=== PATIENT | female | born 1950 | race Caucasian/White ===

== ENCOUNTER 2017-08-23 11:15 | Outpatient (RCR) | payer MEDICARE, OTHER ==
[~2017-08-23 11:15] MED LIST: ASPIRIN 81M81 MG/TA2 PO; ASPIRIN E.C. 8181 MG PO; BACTRIM DS 8001 TAB PO; CELEBREX 200MG200 MG PO; CELEXA; CELEXA40 MG PO; CEPHALEXIN500 M1 PO; CORDARONE200 MG/TAB PO; DILANTIN 100MG100 MG PO; EFFEXOR 3737.5 MG/TA PO; EFFEXOR-XR150 MG PO; FLEXERIL 1010 MG/TAB; IBU400 MG PO; INDERAL; INDERAL 20MG20 MG PO; INDERAL80 MG PO; LEXAPRO20 MG PO; LIPITOR20 MG PO; LOPRESSOR 225 MG/TAB PO; LOPRESSOR 550 MG/TAB PO; LORTAB 5/500 501 TAB PO; MULTIVITAMIN1 CTB PO; NEXIUM PO; NEXIUM24HROTC PO; NORCO 325 MG-51 TAB PO; OMNICEF 300MG300 MG PO; REQUIP 1MG T1 MG/TAB PO; TOPROL XL100 MG PO; ULTRAM 50MG TAB50 MG PO; ZESTRIL 5MG5 MG PO; ZOFRAN4 M1 PO; [UNRECOGNIZED DRUG - CODE] SC
== END 2017-11-11 | disposition home or self-care (01) ==
LOC: MKS.ESL.PT
DX: M25.512 Pain in left shoulder (principal)
CPT/HCPCS: G8978-GP; G8979-GP

== ENCOUNTER 2018-01-29 19:28 | Emergency (ER) | payer MEDICARE, OTHER ==
[2008-10-06 23:05] VITALS: BP 139/77
[~2018-01-29] VITALS: Ht 165.1 cm; Wt 116.4 kg
[2018-01-29 19:29] VITALS: TEMP 97.4
[2018-01-29 20:00] LABS: BASO % 0.3 % (0.0-2.0); EOS # 0.1 (0.0-0.7); EOS % 1.3 % (0-4.0); GRAN % 84.2 % (42.2-75.2); HEMATOCRIT 42.8 % (37.0-47.0); HEMOGLOBIN 13.9 g/dl (12.5-16.0); LYMPH % 9.2 % (20.0-51.0); MEAN CELL VOLUME 91 fl (80.0-100.0); MEAN CORPUSCULAR HEMOGLOBIN 30 pg (27.0-31.0); MEAN CORPUSCULAR HGB CONC 33 g/dl (33.0-37.0); MEAN PLATELET VOLUME 9.2 fl (7.4-10.4); MONO # 0.5 (0.1-0.6); MONO % 4.4 % (1.7-9.3); PLATELET COUNT 234 K/mm3 (130-400); REDCELL DISTRIBUTION WIDTH-CV 13.8 % (11.5-14.5)
[2018-01-29 20:09] LABS: ALANINE AMINOTRANSFERASE 35 U/L (9-52); ALBUMIN 3.8 gm/dL (3.5-5.0); ALKALINE PHOSPHATASE 119 U/L (50-136); ANION GAP 11 mmol/L (7-16); AST,SGOT 24 U/L (15-37); BILIRUBIN,TOTAL 0.8 mg/dL (0.0-1.0); BLOOD UREA NITROGEN 27 mg/dL (7-17); CALCIUM 11.1 mg/dL (8.4-10.2); CARBON DIOXIDE 24 mmol/L (22-30); CHLORIDE 108 mmol/L (98-107); GLUCOSE 101 mg/dL (74-106); POTASSIUM 4.7 mmol/L (3.4-5.0); SODIUM 143 mmol/L (137-145); TOTAL PROTEIN 7.4 gm/dL (6.4-8.2)
[2018-01-29 20:19] LABS: INR 0.9 (0.8-3.0); PROTHROMBIN TIME 10.1 SECONDS (9.7-12.8)
[2018-01-29 20:24] LABS: TROPONIN-I < 0.012 ng/mL (0.000-0.034)
[2018-01-29 20:57] LABS: COLLECTION METHOD CLEAN CATCH
[2018-01-29 21:05] LABS: MUCOUS Present /lpf; PH 5 (5-8); SQUAMOUS EPITHELIAL 0-2 /hpf; URINE APPEARANCE Hazy; URINE BACTERIA Many /hpf; URINE BILIRUBIN Negative (NEGATIVE); URINE BLOOD Negative (NEGATIVE); URINE COLOR Yellow; URINE GLUCOSE Negative (NEGATIVE); URINE KETONE Negative (NEGATIVE); URINE LEUKOCYTE ESTERASE 2+ (NEGATIVE); URINE NITRATE Negative (NEGATIVE); URINE PROTEIN(semi-quant) Negative (NEGATIVE); URINE UROBILINOGEN Negative (NEGATIVE)
[2018-01-29 22:20] VITALS: BP 119/85; PULSE 86
[2018-01-30] MEDS ORDERED: CEFTIN500 MG PO (17:54)
== END 2018-01-29 22:20 | disposition home or self-care (01) ==
LOC: COL.ER 19:28
PROVIDERS: Emergency Medicine
DX: N39.0 Urinary tract infection, site not specified (principal); E86.0 Dehydration; R53.83 Other fatigue; I48.91 Unspecified atrial fibrillation; I10 Essential (primary) hypertension; K21.9 Gastro-esophageal reflux disease without esophagitis; E78.5 Hyperlipidemia, unspecified; Z90.49 Acquired absence of other specified parts of digestive tract; Z90.89 Acquired absence of other organs
CPT/HCPCS: J0696; J2765; J7030; Q9967

== ENCOUNTER 2018-02-02 10:10 | Emergency (ER) | payer MEDICARE, OTHER ==
[2008-10-06 23:05] VITALS: BP 139/77
[~2018-02-02] VITALS: Ht 165.1 cm; Wt 115.5 kg
[~2018-02-02 10:10] MED LIST changes: +CEFTIN500 MG PO
[2018-02-02 10:12] VITALS: TEMP 98.1
[2018-02-02 10:50] LABS: BASO % 0.4 % (0.0-2.0); EOS # 0.1 (0.0-0.7); EOS % 2.4 % (0-4.0); GRAN % 56.5 % (42.2-75.2); HEMATOCRIT 42.9 % (37.0-47.0); HEMOGLOBIN 14.3 g/dl (12.5-16.0); LYMPH # 1.6 (1.2-3.4); LYMPH % 29.7 % (20.0-51.0); MEAN CELL VOLUME 89 fl (80.0-100.0); MEAN CORPUSCULAR HEMOGLOBIN 30 pg (27.0-31.0); MEAN CORPUSCULAR HGB CONC 33 g/dl (33.0-37.0); MEAN PLATELET VOLUME 9.3 fl (7.4-10.4); MONO # 0.6 (0.1-0.6); MONO % 10.3 % (1.7-9.3); PLATELET COUNT 262 K/mm3 (130-400); RED BLOOD COUNT 4.83 M/mm3 (4.10-5.30); REDCELL DISTRIBUTION WIDTH-CV 13.7 % (11.5-14.5)
[2018-02-02 10:58] LABS: ALANINE AMINOTRANSFERASE 49 U/L (9-52); ALBUMIN 3.7 gm/dL (3.5-5.0); ALKALINE PHOSPHATASE 107 U/L (50-136); ANION GAP 14 mmol/L (7-16); AST,SGOT 29 U/L (15-37); BILIRUBIN,TOTAL 0.6 mg/dL (0.0-1.0); BLOOD UREA NITROGEN 24 mg/dL (7-17); CALCIUM 10.6 mg/dL (8.4-10.2); CARBON DIOXIDE 23 mmol/L (22-30); CHLORIDE 103 mmol/L (98-107); CREATININE, serum 0.94 mg/dL (0.52-1.25); GLUCOSE 107 mg/dL (74-106); LIPASE 18 U/L (23-300); MAGNESIUM 1.8 mg/dL (1.6-2.3); POTASSIUM 3.6 mmol/L (3.4-5.0); SODIUM 140 mmol/L (137-145); TOTAL PROTEIN 7.3 gm/dL (6.4-8.2)
[2018-02-02 11:06] LABS: COLLECTION METHOD CLEAN CATCH
[2018-02-02 11:09] LABS: TROPONIN-I < 0.012 ng/mL (0.000-0.034)
[2018-02-02 11:13] LABS: MUCOUS Present /lpf; PH 5 (5-8); SQUAMOUS EPITHELIAL 0-2 /hpf; URINE APPEARANCE Hazy; URINE BACTERIA None Seen /hpf; URINE BILIRUBIN Negative (NEGATIVE); URINE BLOOD Negative (NEGATIVE); URINE COLOR Yellow; URINE GLUCOSE Negative (NEGATIVE); URINE KETONE Negative (NEGATIVE); URINE LEUKOCYTE ESTERASE 2+ (NEGATIVE); URINE NITRATE Negative (NEGATIVE); URINE PROTEIN(semi-quant) 1+ (NEGATIVE); URINE UROBILINOGEN Negative (NEGATIVE)
[2018-02-02] MEDS ORDERED: CEFTIN500 MG PO (12:30)
[2018-02-02 13:53] VITALS: BP 129/74; PULSE 72
[2018-02-04] MEDS ORDERED: LEVAQUIN 5500 MG/TA1 PO (12:11)
== END 2018-02-02 13:54 | disposition home or self-care (01) ==
LOC: COL.ER 10:10
PROVIDERS: Emergency Medicine
DX: N39.0 Urinary tract infection, site not specified (principal); Z79.82 Long term (current) use of aspirin
CPT/HCPCS: J0696; J7040

== ENCOUNTER 2018-03-16 08:28 | Day surgery (SDC) | payer MEDICARE, OTHER ==
[2008-10-06 23:05] VITALS: BP 139/77
[~2018-03-16] VITALS: Ht 165.1 cm; Wt 117.7 kg
[~2018-03-16 08:28] MED LIST changes: +LEVAQUIN 5500 MG/TA1 PO
[2018-03-16 09:20] VITALS: BP 138/77; PULSE 62; TEMP 98.4
[2018-03-16] MEDS ORDERED: ACIPHEX20 MG PO (09:32)
[2018-03-16] MEDS ORDERED: TOPROL XL 50MG50 MG PO (09:34)
[2018-03-16] MEDS ORDERED: VIIBRYD40 MG PO (09:35)
[2018-03-16] MEDS ORDERED: ADVIL200 MG PO (09:37)
[2018-03-16] MEDS ORDERED: NORVASC 5MG5 MG/TAB PO (09:38)
[2018-03-16] MEDS ORDERED: AMOXICILLIN 8751 TAB PO (09:39)
[2018-03-16 11:50] VITALS: BP 138/74; PULSE 66; TEMP 98.2
[2018-03-16 12:05] VITALS: BP 138/54; PULSE 65
[2018-03-16] MEDS ORDERED: SENOKOT8.6 MG PO (12:16)
[2018-03-16] MEDS ORDERED: AZO URINARY PAI95 MG PO (12:17)
[2018-03-16 12:20] VITALS: BP 138/73; PULSE 60
== END 2018-03-16 13:32 | disposition home or self-care (01) ==
LOC: SDCO 08:28
DX: N20.1 Calculus of ureter (principal); R31.29 Other microscopic hematuria; Z87.440 Personal history of urinary (tract) infections; Z79.82 Long term (current) use of aspirin; Z79.899 Other long term (current) drug therapy; E78.00 Pure hypercholesterolemia, unspecified; E83.52 Hypercalcemia; M79.7 Fibromyalgia
CPT/HCPCS: C1769; C2617; J0690; J1100; J2405; J2704; J2765; J3010; J7120

== ENCOUNTER → 2018-06-09 | Outpatient (CLI) | payer MEDICARE, OTHER ==
[~2018-06-09] MED LIST changes: +ACIPHEX20 MG PO; +ADVIL200 MG PO; +AMOXICILLIN 8751 TAB PO; +AZO URINARY PAI95 MG PO; +NORVASC 5MG5 MG/TAB PO; +SENOKOT8.6 MG PO; +TOPROL XL 50MG50 MG PO; +VIIBRYD40 MG PO
== END ==
LOC: COL.RAD 13:09
DX: N32.89 Other specified disorders of bladder (principal); Z87.442 Personal history of urinary calculi

== ENCOUNTER 2018-10-20 11:30 | Emergency (ER) | payer MEDICARE, OTHER ==
[2008-10-06 23:05] VITALS: BP 139/77
[~2018-10-20] VITALS: Ht 165.1 cm; Wt 118.2 kg
[2018-10-20 11:34] VITALS: TEMP 98.1
[2018-10-20 11:57] LABS: BASO # 0.1 (0.0-0.2); BASO % 0.9 % (0.0-2.0); EOS # 0.1 (0.0-0.7); EOS % 1.9 % (0-4.0); GRAN # 3.5 (1.4-6.5); GRAN % 65.4 % (42.2-75.2); HEMOGLOBIN 13.4 g/dl (12.5-16.0); LYMPH # 1.2 (1.2-3.4); LYMPH % 22.6 % (20.0-51.0); MEAN CELL VOLUME 90 fl (80.0-100.0); MEAN CORPUSCULAR HEMOGLOBIN 29 pg (27.0-31.0); MEAN CORPUSCULAR HGB CONC 32 g/dl (33.0-37.0); MEAN PLATELET VOLUME 9.2 fl (7.4-10.4); MONO # 0.5 (0.1-0.6); MONO % 8.6 % (1.7-9.3); PLATELET COUNT 215 K/mm3 (130-400); RED BLOOD COUNT 4.69 M/mm3 (4.10-5.30); REDCELL DISTRIBUTION WIDTH-CV 13.4 % (11.5-14.5)
[2018-10-20 12:03] LABS: INR 0.9 (0.8-3.0); PROTHROMBIN TIME 10.3 SECONDS (9.7-12.8)
[2018-10-20 12:05] LABS: PARTIAL THROMBOPLASTIN TIME 27.5 SECONDS (26.0-37.0)
[2018-10-20] MEDS ORDERED: PRILOSEC 20MG20 MG PO (12:06)
[2018-10-20] MEDS ORDERED: AMBIEN 5MG TABLE5 MG PO (12:08)
[2018-10-20] MEDS ORDERED: MYRBETR50MG PO (12:08)
[2018-10-20 12:22] LABS: ALANINE AMINOTRANSFERASE 29 U/L (9-52); ALBUMIN 3.9 gm/dL (3.5-5.0); ALKALINE PHOSPHATASE 113 U/L (50-136); ANION GAP 8 mmol/L (7-16); AST,SGOT 33 U/L (15-37); BILIRUBIN,TOTAL 0.8 mg/dL (0.0-1.0); BLOOD UREA NITROGEN 12 mg/dL (7-17); CALCIUM 10.1 mg/dL (8.4-10.2); CARBON DIOXIDE 25 mmol/L (22-30); CHLORIDE 107 mmol/L (98-107); CREATININE, serum 0.61 mg/dL (0.52-1.25); GLUCOSE 110 mg/dL (74-106); LIPASE 19 U/L (23-300); POTASSIUM 3.4 mmol/L (3.4-5.0); SODIUM 140 mmol/L (137-145)
[2018-10-20 12:37] LABS: TROPONIN-I < 0.012 ng/mL (0.000-0.035)
[2018-10-20 16:19] VITALS: BP 115/81; PULSE 74
== END 2018-10-20 16:20 | disposition home or self-care (01) ==
LOC: COL.ER 11:30
PROVIDERS: Emergency Medicine
DX: R00.2 Palpitations (principal); R06.02 Shortness of breath; I10 Essential (primary) hypertension; K21.9 Gastro-esophageal reflux disease without esophagitis
CPT/HCPCS: Q9967

== ENCOUNTER → 2019-01-12 | Outpatient (CLI) | payer MEDICARE, OTHER ==
[~2019-01-12] MED LIST changes: +AMBIEN 5MG TABLE5 MG PO; +MAGNESIUM200 MG PO; +MYRBETR50MG PO; +PRILOSEC 20MG20 MG PO
[2019-01-12 16:38] LABS: HEMATOCRIT 41.2 % (37.0-47.0); MEAN CELL VOLUME 90 fl (80.0-100.0); MEAN CORPUSCULAR HEMOGLOBIN 28 pg (27.0-31.0); MEAN CORPUSCULAR HGB CONC 32 g/dl (33.0-37.0); MEAN PLATELET VOLUME 9.4 fl (7.4-10.4); PLATELET COUNT 237 K/mm3 (130-400); RED BLOOD COUNT 4.57 M/mm3 (4.10-5.30); REDCELL DISTRIBUTION WIDTH-CV 13.8 % (11.5-14.5)
[2019-01-12 16:47] LABS: ANION GAP 7 mmol/L (7-16); BLOOD UREA NITROGEN 18 mg/dL (7-17); CALCIUM 10.3 mg/dL (8.4-10.2); CARBON DIOXIDE 28 mmol/L (22-30); CHLORIDE 106 mmol/L (98-107); CREATININE, serum 0.73 (0.52-1.25); GLUCOSE 97 mg/dL (74-106); POTASSIUM 3.9 mmol/L (3.4-5.0); SODIUM 141 mmol/L (137-145)
[2019-01-12 17:00] LABS: TROPONIN-I < 0.012 ng/mL (0.000-0.035)
== END ==
LOC: COL.LAB 16:13
PROVIDERS: Internal Medicine Interventional Cardiology
DX: I47.2 Ventricular tachycardia (principal)

== ENCOUNTER 2019-01-14 14:51 | Inpatient (IN) | payer MEDICARE, OTHER ==
[~2019-01-14] VITALS: Ht 167.6 cm; Wt 117.3 kg
[~2019-01-14 14:51] MED LIST changes: -MAGNESIUM200 MG PO
[2019-01-14 15:08] VITALS: BP 141/78; PULSE 72; TEMP 98.6
[2019-01-14 15:54] LABS: BASO # 0.1 (0.0-0.2); BASO % 0.8 % (0.0-2.0); EOS # 0.1 (0.0-0.7); EOS % 1.2 % (0-4.0); GRAN # 4.2 (1.4-6.5); GRAN % 65.3 % (42.2-75.2); HEMATOCRIT 41.3 % (37.0-47.0); HEMOGLOBIN 13.1 g/dl (12.5-16.0); LYMPH # 1.5 (1.2-3.4); LYMPH % 23.7 % (20.0-51.0); MEAN CELL VOLUME 91 fl (80.0-100.0); MEAN CORPUSCULAR HEMOGLOBIN 29 pg (27.0-31.0); MEAN CORPUSCULAR HGB CONC 32 g/dl (33.0-37.0); MEAN PLATELET VOLUME 9.5 fl (7.4-10.4); MONO # 0.5 (0.1-0.6); MONO % 8.4 % (1.7-9.3); PLATELET COUNT 245 K/mm3 (130-400); RED BLOOD COUNT 4.56 M/mm3 (4.10-5.30); REDCELL DISTRIBUTION WIDTH-CV 13.9 % (11.5-14.5)
[2019-01-14 15:56] LABS: ALANINE AMINOTRANSFERASE 17 U/L (9-52); ALBUMIN 3.8 gm/dL (3.5-5.0); ALKALINE PHOSPHATASE 131 U/L (50-136); ANION GAP 7 mmol/L (7-16); AST,SGOT 24 U/L (15-37); BILIRUBIN,TOTAL 0.3 mg/dL (0.0-1.0); BLOOD UREA NITROGEN 17 mg/dL (7-17); CALCIUM 10.2 mg/dL (8.4-10.2); CARBON DIOXIDE 28 mmol/L (22-30); CHLORIDE 105 mmol/L (98-107); CREATININE, serum 0.64 (0.52-1.25); GLUCOSE 115 mg/dL (74-106); MAGNESIUM 1.9 mg/dL (1.6-2.3); PHOSPHOROUS 3.1 mg/dL (2.5-4.5); POTASSIUM 3.7 mmol/L (3.4-5.0); SODIUM 140 mmol/L (137-145); TOTAL PROTEIN 6.9 gm/dL (6.4-8.2)
[2019-01-14 16:10] LABS: TROPONIN-I < 0.012 ng/mL (0.000-0.035)
[2019-01-14] MEDS ORDERED: MAGNESIUM200 MG PO (16:20)
[2019-01-14 19:24] VITALS: BP 132/75; PULSE 69; TEMP 98.3
[2019-01-14 22:54] VITALS: BP 115/65; PULSE 89; TEMP 98.6
[2019-01-14 23:58] VITALS: BP 137/63; PULSE 64; TEMP 97.8
[2019-01-15 04:05] VITALS: BP 118/67; PULSE 62; TEMP 98.1
[2019-01-15 06:59] VITALS: BP 117/44; PULSE 66; TEMP 97.9
[2019-01-15 10:42] VITALS: BP 132/81; PULSE 64; TEMP 98.1
[2019-01-15 15:20] VITALS: BP 134/72; PULSE 63; TEMP 98.5
[2019-01-15 21:21] VITALS: BP 147/71; PULSE 65; TEMP 98.4
[2019-01-15 23:35] VITALS: BP 128/67; PULSE 62; TEMP 97.9
[2019-01-16] VITALS (14 sets, daily range): BP systolic 119–158; BP diastolic 65–91; PULSE 62–78; TEMP 98–98.8
== END 2019-01-16 18:04 | disposition home or self-care (01) | DRG 287 ==
LOC: MEDICAL 14:51
PROVIDERS: ADMIT Internal Medicine Interventional Cardiology
PROC: B2111ZZ Fluoroscopy of Multiple Coronary Arteries using Low Osmolar Contrast (ICD-10-PCS; principal; 2019-01-16)
PROC: B2161ZZ Fluoroscopy of Right and Left Heart using Low Osmolar Contrast (ICD-10-PCS; principal; 2019-01-16)
PROC: 4A023N7 Measurement of Cardiac Sampling and Pressure, Left Heart, Percutaneous Approach (ICD-10-PCS; principal; 2019-01-16)
DX: I47.2 Ventricular tachycardia (principal); I50.20 Unspecified systolic (congestive) heart failure; Z95.810 Presence of automatic (implantable) cardiac defibrillator; I44.7 Left bundle-branch block, unspecified; Z88.1 Allergy status to other antibiotic agents; Z88.5 Allergy status to narcotic agent; Z88.0 Allergy status to penicillin; F32.9 Major depressive disorder, single episode, unspecified; Z63.4 Disappearance and death of family member
CPT/HCPCS: J1644; J1650; J2250; J3010; Q9967

== ENCOUNTER → 2019-01-24 | Outpatient (CLI) | payer MEDICARE, OTHER ==
[~2019-01-24] MED LIST changes: +MAGNESIUM200 MG PO
== END ==
LOC: COL.VAS 13:23
DX: M79.81 Nontraumatic hematoma of soft tissue (principal)

== ENCOUNTER → 2020-01-04 | Outpatient (CLI) | payer MEDICARE, OTHER | LOC: ZCOL.LAB 17:59 | DX: I47.2 Ventricular tachycardia (principal) ==

== ENCOUNTER 2021-09-23 13:01 | Inpatient (IN) | payer MEDICARE, OTHER ==
[~2021-09-23] VITALS: Ht 165.1 cm; Wt 118.0 kg
[2021-09-23 14:12] LABS: BASO % 0.4 % (0.0-2.0); EOS # 0.1 K/mm3 (0.0-0.7); EOS % 1.5 % (0.0-4.0); GRAN # 4.8 K/mm3 (1.4-6.5); GRAN % 64.4 % (42.2-75.2); HEMATOCRIT 43.5 % (37.0-47.0); HEMOGLOBIN 13.9 g/dl (12.5-16.0); LYMPH # 1.9 K/mm3 (1.2-3.4); LYMPH % 26.3 % (20.0-51.0); MEAN CELL VOLUME 90 fl (80.0-100.0); MEAN CORPUSCULAR HEMOGLOBIN 29 pg (27-31); MEAN CORPUSCULAR HGB CONC 32 g/dl (33.0-37.0); MEAN PLATELET VOLUME 10.1 fl (7.4-10.4); MONO # 0.5 K/mm3 (0.1-0.6); MONO % 6.9 % (1.7-9.3); PLATELET COUNT 221 K/mm3 (130-400); RED BLOOD COUNT 4.85 M/mm3 (4.10-5.30)
[2021-09-23 14:50] LABS: ALANINE AMINOTRANSFERASE 14 U/L (0-55); ALBUMIN 3.5 gm/dL (3.4-4.8); ALKALINE PHOSPHATASE 96 U/L (40-150); ANION GAP 11 mmol/L (7-16); AST,SGOT 20 U/L (5-34); BILIRUBIN,TOTAL 0.3 mg/dL (0.2-1.2); BLOOD UREA NITROGEN 23 mg/dL (10-20); CALCIUM 9.2 mg/dL (8.4-10.2); CARBON DIOXIDE 19 mmol/L (23-31); CHLORIDE 110 mmol/L (98-107); CREATININE, serum 0.71 mg/dL (0.57-1.11); GLUCOSE 107 mg/dL (70-99); POTASSIUM 4.2 mmol/L (3.5-4.5); SODIUM 140 mmol/L (136-145); TOTAL PROTEIN 6.4 gm/dL (6.2-8.1)
[2021-09-23 15:10] LABS: TSH w REFLEX 0.686 uIU/mL (0.350-4.940)
[2021-09-23 15:30] LABS: TROPONIN-I < 0.010 ng/mL (0.00-0.033)
[2021-09-23 16:15] LABS: COLLECTION METHOD CLEAN CATCH
[2021-09-23 16:23] LABS: MUCOUS Present (NOT PRESENT); PH 6 (5-8); SQUAMOUS EPITHELIAL 0-2 /hpf (0-10); URINE APPEARANCE Clear (CLEAR/HAZY); URINE BACTERIA None Seen /hpf (NONE SEEN); URINE BILIRUBIN Negative (NEGATIVE); URINE BLOOD Negative (NEGATIVE); URINE COLOR Yellow (YELLOW); URINE GLUCOSE 3+ (NEGATIVE); URINE KETONE Trace (NEGATIVE); URINE LEUKOCYTE ESTERASE Trace (NEGATIVE); URINE NITRATE Negative (NEGATIVE); URINE PROTEIN(semi-quant) Negative (NEGATIVE); URINE RBC 0-2 /hpf (0-2); URINE UROBILINOGEN Negative (NEGATIVE)
[2021-09-23 16:54] LABS: PARTIAL THROMBOPLASTIN TIME 25.9 SECONDS (26.0-37.0)
[2021-09-23 19:14] VITALS: BP 112/72; PULSE 110; TEMP 98.7
--- NOTE | 2021-09-23 19:30 | NUR ---
Patient is resting in bed, alert and oriented x 4. Heart rate 100-115. No fever. She states she had some lightheadness. Assessment completed. Continue monitoring.
[2021-09-23] MEDS ORDERED: TOPROL XL 25MG25 MG PO (19:38)
[2021-09-23] MEDS ORDERED: MAGNESIUM250 M1 PO ×2 (19:44→19:45)
[2021-09-23] MEDS ORDERED: PRISTIQ100 MG PO (19:47)
[2021-09-23] MEDS ORDERED: ENTRESTO 24 MG1 EACH PO (19:48)
[2021-09-23] MEDS ORDERED: VITAMIN D31000 I1 PO (19:49)
[2021-09-24 00:01] VITALS: BP 112/67; PULSE 99; TEMP 98.3
[2021-09-24 04:27] VITALS: BP 109/55; PULSE 95; TEMP 97.9
[2021-09-24 05:34] LABS: BASO % 0.5 % (0.0-2.0); EOS # 0.2 K/mm3 (0.0-0.7); EOS % 2.8 % (0.0-4.0); GRAN % 49.3 % (42.2-75.2); HEMATOCRIT 40.3 % (37.0-47.0); HEMOGLOBIN 12.8 g/dl (12.5-16.0); LYMPH # 2.3 K/mm3 (1.2-3.4); LYMPH % 38.6 % (20.0-51.0); MEAN CELL VOLUME 90 fl (80.0-100.0); MEAN CORPUSCULAR HEMOGLOBIN 29 pg (27-31); MEAN CORPUSCULAR HGB CONC 32 g/dl (33.0-37.0); MEAN PLATELET VOLUME 9.3 fl (7.4-10.4); MONO # 0.5 K/mm3 (0.1-0.6); MONO % 8.6 % (1.7-9.3); PLATELET COUNT 188 K/mm3 (130-400); RED BLOOD COUNT 4.49 M/mm3 (4.10-5.30)
[2021-09-24 05:52] LABS: CALCIUM 9.5 mg/dL (8.4-10.2); CREATININE, serum 0.68 mg/dL (0.57-1.11); POTASSIUM 3.9 mmol/L (3.5-4.5)
--- NOTE | 2021-09-24 06:15 | NUR ---
Pt HR has been in the 90s the second part of the night. She states she feels ok and wants to go home today. She has been NPO since midnight. Report will be given to day RN.
[2021-09-24 08:36] VITALS: BP 107/69; PULSE 110; TEMP 98.8
--- NOTE | 2021-09-24 09:22 | NUR ---
The patient is a PUI for COVID. SW contacted the patient to discuss discharge plan. The patient lives alone in [place]. Her son, Austin, and his family live across the street from her. She reports independence with ADLs and has a cane available, when needed. The patient's PCP is Dr. Mckenna Bautista and she receives her medications from [facility] and [facility]. She reports no difficulties obtaining her meds. The patient does not have a DPOA-HC in EMR, but she states that she does have one completed and that her PCP's office should have a copy. MELANIE contacted Dr. Bautista's office to inquire if they have a copy. The guest relations receptionist reports that he will leave a message for their high school social studies teacher to contact this SW back. The patient states that she is and that she has two children: Austin and Sheree Lala (ph#[phone]). The patient plans on returning home upon discharge. SW to continue to monitor. *Discharge plan: home*
[2021-09-24] MEDS ORDERED: ELIQUIS 5MG PO (10:17)
[2021-09-24] MEDS ORDERED: CORDARONE200 MG/TAB PO (10:17)
[2021-09-24] MEDS ORDERED: ZEBETA 5MG5 MG PO (10:18)
--- NOTE | 2021-09-24 13:45 | NUR ---
PT PLEASANT, EDUCATED ON DISCHARGE INFORMATION, EDUCATED ON ADVERSE EFFECTS OF NEW BP MEDS AND ELIQUIS, EDUCATED ON APPT TIMES AND LAB DRAWS, INT X2 REMOVED FROM PT, TELE REMOVED, PT BELONGINGS GATHERED AND ESCORTED OUT WITH PT VIA WHEELCHAIR, NO OTHER NEEDS.
== END 2021-09-24 14:10 | disposition home or self-care (01) | DRG 308 ==
LOC: COL.ER 13:01 → SURG 14:57 → MEDICAL 16:13
PROVIDERS: Physician Assistant; ADMIT Emergency Medicine
PROC: 4B02XTZ Measurement of Cardiac Defibrillator, External Approach (ICD-10-PCS; principal; 2021-09-23)
DX: I48.91 Unspecified atrial fibrillation (principal); I50.23 Acute on chronic systolic (congestive) heart failure; Z68.42 Body mass index [BMI] 45.0-49.9, adult; M19.90 Unspecified osteoarthritis, unspecified site; E78.5 Hyperlipidemia, unspecified; I11.0 Hypertensive heart disease with heart failure; G89.29 Other chronic pain; E66.01 Morbid (severe) obesity due to excess calories; K21.9 Gastro-esophageal reflux disease without esophagitis; G25.81 Restless legs syndrome; F32.9 Major depressive disorder, single episode, unspecified; R30.0 Dysuria; Z20.822 Contact with and (suspected) exposure to COVID-19; Z95.810 Presence of automatic (implantable) cardiac defibrillator; Z90.49 Acquired absence of other specified parts of digestive tract; Z79.82 Long term (current) use of aspirin; Z23 Encounter for immunization
CPT/HCPCS: 99222-AI; 99239; J0282; J1644; J7060

== ENCOUNTER 2021-11-09 11:05 | Emergency (ER) | payer MEDICARE, OTHER ==
[~2021-11-09] VITALS: Ht 165.1 cm; Wt 122.7 kg
[~2021-11-09 11:05] MED LIST changes: +ELIQUIS 5MG PO; +ENTRESTO 24 MG1 EACH PO; +MAGNESIUM250 M1 PO; +PRISTIQ100 MG PO; +TOPROL XL 25MG25 MG PO; +VITAMIN D31000 I1 PO; +ZEBETA 5MG5 MG PO
[2021-11-09 11:26] VITALS: BP 140/105; PULSE 91; TEMP 98.5
[2021-11-09 11:49] LABS: COLLECTION METHOD CLEAN CATCH
[2021-11-09 11:57] LABS: MUCOUS Present (NOT PRESENT); PH 5 (5-8); SQUAMOUS EPITHELIAL 0-2 /hpf (0-10); URINE APPEARANCE Hazy (CLEAR/HAZY); URINE BACTERIA Rare /hpf (NONE SEEN); URINE BILIRUBIN Negative (NEGATIVE); URINE BLOOD 2+ (NEGATIVE); URINE COLOR Yellow (YELLOW); URINE GLUCOSE 3+ (NEGATIVE); URINE KETONE 1+ (NEGATIVE); URINE LEUKOCYTE ESTERASE Trace (NEGATIVE); URINE NITRATE Negative (NEGATIVE); URINE PROTEIN(semi-quant) 1+ (NEGATIVE); URINE RBC 20-50 /hpf (0-2); URINE UROBILINOGEN Negative (NEGATIVE)
[2021-11-09] MEDS ORDERED: CIPRO 500MG TA500 MG PO (12:02)
== END 2021-11-09 12:12 | disposition home or self-care (01) ==
LOC: COL.ER 11:05
PROVIDERS: Emergency Medicine
DX: N39.0 Urinary tract infection, site not specified (principal); Z88.0 Allergy status to penicillin; Z88.1 Allergy status to other antibiotic agents

== ENCOUNTER 2023-08-31 10:30 | Outpatient (RCR) | payer MEDICARE, OTHER ==
[~2023-08-31 10:30] MED LIST changes: +CIPRO 500MG TA500 MG PO; +ENTRESTO 97 MG1 EACH PO; +IRON TABLETS325 MG PO; +JARDIANCE10; +MAGNESIUM PO; +MAGNESIUM500 MG PO; +MASON NATURAL2000 IU PO; +MULTI VITAMINS1 TAB PO; +NATURAL MAGNES200 MG PO; +PACERONE100 MG PO; +PRIL40 PO; +VIIBRYD20 MG PO
== END 2023-09-05 | disposition home or self-care (01) ==
LOC: WSPT
DX: M17.0 Bilateral primary osteoarthritis of knee (principal); Z96.653 Presence of artificial knee joint, bilateral